=== PATIENT | female | born 1965 | race Caucasian/White ===

== ENCOUNTER 2023-05-08 10:15 | Day surgery (SDC) | payer OTHER ==
[~2023-05-08] VITALS: Ht 170.2 cm; Wt 90.3 kg
[2023-05-08] VITALS (7 sets, daily range): BP systolic 145–177; BP diastolic 67–88; PULSE 83–95; TEMP 97.1–98
[2023-05-08] MEDS ORDERED: PRIL40 PO (11:54)
[2023-05-08] MEDS ORDERED: K-DUR 10 MEQ T10 MEQ PO (11:55)
[2023-05-08] MEDS ORDERED: GLUCOPHAGE500 MG/TAB PO (11:55)
[2023-05-08] MEDS ORDERED: MAXALT10 MG (11:56)
[2023-05-08] MEDS ORDERED: NORCO 325 MG-51 TAB PO (14:03)
[2023-05-08] MEDS ORDERED: ZOFRAN 4MG T4 MG/TAB PO (16:56)
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
== END 2023-05-08 16:45 | disposition home or self-care (01) ==
LOC: SDCO 10:15
DX: K80.10 Calculus of gallbladder with chronic cholecystitis without obstruction (principal); K21.9 Gastro-esophageal reflux disease without esophagitis; Z87.891 Personal history of nicotine dependence; Z79.899 Other long term (current) drug therapy
CPT/HCPCS: J0690; J1100; J2405; J2704; J3010; J7120